=== PATIENT | male | born 1985 | race Caucasian/White ===

== ENCOUNTER → 2020-07-09 15:27 | Outpatient (BNVA) | payer OTHER, SELFPAY | PROVIDERS: PCP Electrodiagnostic Medicine; Visit Provider Nurse Practitioner | DX: Z20.828 Contact with and (suspected) exposure to other viral communicable diseases (principal) | CPT/HCPCS: 87635 ==

== ENCOUNTER 2020-08-31 16:07 | Emergency (ER) | payer SELFPAY ==
--- NOTE | 2020-08-31 16:09 | USR_ITS ---
PROCEDURE INFORMATION: Exam: US Scrotum Exam date and time: 08/31/2020 4:20 PM Age: 34 years old Clinical indication: Scrotum pain; Prior surgery; Surgery date: 6+ months; Surgery type: Testicular; Additional info: Testicular pain/possible torsion TECHNIQUE: Imaging protocol: Real-time ultrasound of the scrotum and contents with color Doppler and image documentation. COMPARISON: US Testicular [id number] 10/29/2017 4:11 PM FINDINGS: Right testicle: Right testis measures 5.7 x 2.3 x 3.1 cm. The testis is normal in echotexture. No focal testicular lesion is demonstrated. Appropriate blood flow documented by Doppler. Left testicle: Left testis measures 5.1 x 2.6 x 3.6 cm. The testis is normal in echotexture. No focal testicular lesion is demonstrated. Appropriate blood flow documented by Doppler. Epididymides: 7 mm right epididymal head cyst. Left epididymis is unremarkable. Scrotum: No hydrocele or varicocele demonstrated. US/US scrotum [id number] IMPRESSION: 1. Sonographically normal testes bilaterally. No evidence of torsion. 2. 7 mm right epididymal head cyst.
--- NOTE | 2020-08-31 16:13 | ED_ITS ---
HPI - Male Genitourinary General: Chief complaint: Urogenital-Male Stated complaint: POSS KIDNEY STONES Time Seen by Provider: 08/31/20 16:09 History of Present Illness: HPI Narrative: 30 for a male complaining of testicular pain he states most of the pain is in his left testicle it began earlier today to begin increasing in discomfort throughout the day. He is not had any hematuria he has had kidney stones in the past. He denies any fever sweats or chills pain radiated up from the left flank but most of it is concentrated in the left testicle now. MD Complaint: testicle pain Onset (ago): hour(s) Duration: constant Location: left testicle Radiation: left flank Severity: severe Quality: sharp and stabbing Relieving factors: none Exacerbating factors: none Associated symptoms: Deny discharge, dysuria, fevers/chills, hematuria, nausea, rash, swelling, urinary incontinence, urinary retention, mass or vomiting Review of Systems Const: Denies: fever(s), chills, body aches, change in appetite, fatigue or malaise ENMT: Denies: throat pain, ear or mastoid pain, nasal discharge or nasal congestion Card: Denies: chest pain, edema, dyspnea on exertion or orthopnea Resp: Denies: dyspnea, productive cough or non-productive cough GI: Denies: nausea or vomiting : Denies: dysuria, urinary incontinence or hematuria Skin/Breast: Denies: rash or pruritus Physical Exam Const: GENERAL APPEARANCE: cooperative ORIENTATION/CONSCIOUSNESS: Yes awake, Yes oriented to person, Yes oriented to place and Yes oriented to time HENMT: COMMON NORMALS: normocephalic, atraumatic and hearing grossly normal bilaterally HEAD & SCALP: normocephalic and atraumatic Neck/C-Spine: COMMON NORMALS: no JVD Resp: COMMON NORMALS: normal respiratory effort, No retractions, No use of accessory muscles and clear to auscultation bilaterally AUSCULTATION: clear to auscultation bilaterally Cardio: COMMON NORMALS: no JVD, regular rate, regular rhythm and No murmurs present (Cardio) RATE: regular rate RHYTHM: regular rhythm GI: COMMON NORMALS: Soft to palpation and No hepatosplenomegaly present AUSCULTATION: Yes normoactive bowel sounds PALPATION: Yes Soft to palpation, No Tenderness to palpation present (GI), No Guarding due to palpation present (GI) and Yes No hepatosplenomegaly present Extremity: COMMON NORMALS: normal to inspection, capillary refill normal, no clubbing, cyanosis or edema, no calf tenderness and no pedal edema Neuro: SENSORIUM/ORIENTATION: Yes oriented to person, Yes oriented to place and Yes oriented to time Skin: COMMON NORMALS: no rashes or lesions noted GENERAL SKIN EXAM: no rashes or lesions noted Course Vital Signs: Vital signs: Vital Signs Temperature 97.8 F 08/31/20 16:16 Pulse Rate 101 H 08/31/20 16:16 Respiratory Rate 16 08/31/20 16:25 Blood Pressure 157/107 08/31/20 16:16 Pulse Oximetry 100 08/31/20 16:16 MDM - Male MDM Narrative: Medical decision making narrative: Discussed with Dr. Rouse will admit for bilateral urolithiasis. Orders written Lab Data: Labs: Lab Results 08/31/20 08/31/20 Range/Units 16:24 16:24 WBC 12.6 H (4.0-10.0) 10^3/ uL RBC 5.33 H (4.1-5.3) 10^6/u L Hgb 15.8 (11.7-16.6) g/dL Hct 45.7 (42.0-52.0) % MCV 85.7 (80-94) fL MCH 29.6 (28.0-34.0) pg MCHC 34.6 (30.0-36.0) g/dL RDW 12.6 (12.1-15.1) % Plt Count 362 (130-400) 10^3/c mm MPV 9.4 (7.4-10.4) fL Neut % (Auto) 73.8 % Lymph % (Auto) 15.7 % [place] % (Auto) 9.1 % Eos % (Auto) 0.6 % Baso % (Auto) 0.5 % Neut # (Auto) 9.28 H (1.8-7.7) 10^3/u L Lymph # (Auto) 2.0 (0.8-4.8) 10^3/u L [place] # (Auto) 1.1 H (0.2-0.9) 10^3/u L Eos # (Auto) 0.1 (0.0-0.8) 10^3/u L Baso # (Auto) 0.1 (0.0-0.1) 10^3/u L Nucleated RBC % (a uto) 0 % Nucleated RBCs # 0.0 /100WBC Sodium 137 (136-145) mmol/L Potassium 3.4 L (3.5-5.1) mmol/L Chloride 98 (98-107) mmol/L Carbon Dioxide 28 (22-29) mmol/L Anion Gap 14.4 (5-19) BUN 15 (6-20) mg/dL Creatinine 1.5 H (0.7-1.2) mg/dL GFR Calculation 53.6 L (90-130) mL/min Glucose 107 (65-115) mg/dL Calculated Osmolal ity 285 (285-295) mOsm/k g Calcium 10.3 (8.5-10.5) mg/dL Total Bilirubin 0.5 (0.15-1.2) mg/dL AST 24 (0-40) U/L ALT 14 (0-41) U/L Alkaline Phosphata se 73 (40-130) IU/L Total Protein 7.3 (6.6-8.7) g/dL Albumin 4.7 (3.5-5.2) g/dL Globulin 2.6 (1.3-4.6) g/dL Discharge Plan Discharge Patient Disposition: Admitted As Inpatient Clinical Impression: Nephrolithiasis Condition: Stable Prescriptions: No Action Pain Relief ([id number]) 1 tab PO QAM PRN (Reason: Pain) RF: 0 Referrals: Maicol Lundberg DO [Primary Care Provider] - Coding Level of Care Code ED [employer] for g Fwd Exam Comprehensive
[2020-08-31 16:16] VITALS: BP 157/107; PULSE 101; RESP 18; TEMP 36.6; O2SAT 100; BMI 24.3
[2020-08-31] MEDS: ondansetron 2 mg/ML SDV 2 mL 4 MG IVP (16:22)
[2020-08-31 16:25] VITALS: RESP 16
[2020-08-31] MEDS: morphine 4 mg/mL SDV 1 mL 6 MG IVP (16:25)
--- NOTE | 2020-08-31 17:04 | CTR_ITS ---
PROCEDURE INFORMATION: Exam: CT Abdomen And Pelvis Without Contrast Exam date and time: 08/31/2020 5:05 PM Age: 34 years old Clinical indication: Abdominal pain; Flank; Prior surgery; Surgery type: Kidney stone; Patient HX: Left testicle pain; Additional info: Flank pain TECHNIQUE: Imaging protocol: Computed tomography of the abdomen and pelvis without contrast. Radiation optimization: All CT scans at this facility use at least one of these dose optimization techniques: automated exposure control; mA and/or kV adjustment per patient size (includes targeted exams where dose is matched to clinical indication); or iterative reconstruction. COMPARISON: No relevant prior studies available. RADIATION DOSE METRICS: Total DLP (mGy-cm): 799.17 FINDINGS: Lungs: Mild bullous disease at the lung bases. No infiltrates. Liver: Unremarkable. No mass. Gallbladder and bile ducts: Unremarkable. No calcified stones. No ductal dilation. Pancreas: Unremarkable. No ductal dilation. Spleen: Unremarkable. No splenomegaly. Adrenal glands: Unremarkable. No mass. Kidneys and ureters: Moderate left hydroureteronephrosis. There is a 7 mm mid left ureteral calculus. Findings are consistent with left obstructive uropathy. Mild right hydroureteronephrosis. There is a 5 mm distal right ureteral calculus. Findings are consistent with right obstructive uropathy. Stomach and bowel: Unremarkable. No obstruction. No mucosal thickening. Appendix: No evidence of appendicitis. Intraperitoneal space: No free air. No significant fluid collection. Vasculature: Mild atherosclerosis. No abdominal aortic aneurysm. Lymph nodes: No enlarged lymph nodes. Urinary bladder: Unremarkable as visualized. Reproductive: Unremarkable as visualized. Bones/joints: Unremarkable. No acute fracture. Soft tissues: Unremarkable. CT/CT kidney stone [id number] IMPRESSION: 1. Moderate left hydroureteronephrosis. There is a 7 mm mid left ureteral calculus. Findings are consistent with left obstructive uropathy. 2. Mild right hydroureteronephrosis. There is a 5 mm distal right ureteral calculus. Findings are consistent with right obstructive uropathy. Radiation Dose CTDIVOL = (mGy): DLP = 799.17 (mGy-cm)
[2020-08-31 17:14] LABS: Basophils # 0.1 10^3/uL (0.0-0.1); Basophils % 0.5 %; Eosinophils # 0.1 10^3/uL (0.0-0.8); Eosinophils % 0.6 %; Hematocrit 45.7 % (42.0-52.0); Hemoglobin 15.8 g/dL (11.7-16.6); Lymphocytes % 15.7 %; Mean Corpuscular HGB Conc 34.6 g/dL (30.0-36.0); Mean Corpuscular Hemoglobin 29.6 pg (28.0-34.0); Mean Corpuscular Volume 85.7 fL (80-94); Mean Platelet Volume 9.4 fL (7.4-10.4); Monocytes # 1.1 10^3/uL (0.2-0.9); Monocytes % 9.1 %; Neutrophils # 9.28 10^3/uL (1.8-7.7); Neutrophils % 73.8 %; Nucleated Red Blood Cells % 0 %; Platelet Count 362 10^3/cmm (130-400); Red Blood Count 5.33 10^6/uL (4.1-5.3); Red Cell Distribution Width 12.6 % (12.1-15.1); White Blood Count 12.6 10^3/uL (4.0-10.0)
[2020-08-31] MEDS: morphine 4 mg/mL SDV 1 mL IVP (17:15)
--- NOTE | 2020-08-31 17:43 | PC.NURSE ---
Bladder scan: 200 mL
[2020-08-31 17:51] LABS: Alanine Aminotransferase 14 U/L (0-41); Albumin Level 4.7 g/dL (3.5-5.2); Alkaline Phosphatase 73 IU/L (40-130); Anion Gap 14.4 (5-19); Aspartate Amino Transferase 24 U/L (0-40); Blood Urea Nitrogen 15 mg/dL (6-20); Calcium 10.3 mg/dL (8.5-10.5); Carbon Dioxide 28 mmol/L (22-29); Chloride 98 mmol/L (98-107); Globulin 2.6 g/dL (1.3-4.6); Glomerular Filtration Rate 53.6 mL/min (90-130); Glucose 107 mg/dL (65-115); Osmolality Calculated 285 mOsm/kg (285-295); Potassium 3.4 mmol/L (3.5-5.1); Sodium 137 mmol/L (136-145); Total Bilirubin 0.5 mg/dL (0.15-1.2); Total Protein 7.3 g/dL (6.6-8.7)
[2020-08-31 17:56] LABS: Creatinine Clr Calc Pharmacy 75.3287
[2020-08-31 18:28] LABS: Add Urine Microscopic? YES; Bilirubin Urine Neg (Negative); Blood Urine Neg (Negative); Glucose Urine UA Norm (Normal); Ketones Urine Negative (Negative); Leukocyte Esterase Urine Negative (Negative); Nitrate Urine Negative (Negative); Protein Urine Neg (Negative); Sulfosalicylic Acid Urine Positive (Negative); Urine Appearance Cloudy (CLEAR); Urine Color Yellow (Yellow); Urobilinogen Urine Norm (Negative); pH Urine 8 (5-7)
[2020-08-31 18:40] LABS: Add Urine Culture? Yes; Bacteria Urine 2+ /hpf; RBC Urine TOO NUMEROUS TO CNT /hpf (0-2); Squamous Epithelial Cell Urine 0-4 /hpf (0-5); WBC Urine 0-4 /hpf (0-5)
[2020-08-31 19:16] VITALS: BP 175/107; PULSE 110; RESP 22; O2SAT 97
--- NOTE | 2020-08-31 19:30 | PC.NURSE ---
during pt rounding, pt expressing concers regarding inpatient admission. After pt informed of reason for admission, pt requesting time to speak with family member present in room to discuss options for admission
--- NOTE | 2020-08-31 20:02 | PC.NURSE ---
pt not in room, no sign that pt removed his IV. Was told in report that pt admits to street drug use. Staff attempted to locate pt in lobbies and parking lots, was told by registration clerks that pt was found in the lobby looking for his girlfriend and was told he could not stay in lobby. PRATIBHA, pharmacy assistant, [employer] notified of pt elopement
--- NOTE | 2020-08-31 20:16 | PC.SOCIAL ---
Patient seen in the ED for initial assessment. He was assigned a room but left the ED AMA before going to the floor. He lived with his grandmother and other family. He is not working currently or had no insurance. A financial assistance application was provided to him.
== END 2020-08-31 20:00 | disposition admitted as inpatient to this hospital (09) ==
PROVIDERS: Emergency Provider Family Medicine; PCP Electrodiagnostic Medicine
DX: N20.0 Calculus of kidney (principal)
CPT/HCPCS: 12345; 51798; 74176; 76870; 80053; 81001; 85025; 87086; 96374; 96375; 96376; 99283; J2270; J2405

== ENCOUNTER 2020-09-07 15:37 | Outpatient (CLI) | payer OTHER, SELFPAY ==
--- NOTE | 2020-09-07 16:00 | XRR_ITS ---
PROCEDURE INFORMATION: Exam: XR Abdomen, 1 View Exam date and time: 09/07/2020 3:45 PM Age: 34 years old Clinical indication: Condition or disease; Kidney or ureter condition; Calculus (stone) in kidney; Additional info: Nephrolithiasis TECHNIQUE: Imaging protocol: XR of the abdomen. Views: Frontal supine view of the abdomen. 1 View. COMPARISON: CT kidney stone [id number] 08/31/2020 5:18 PM FINDINGS: Gastrointestinal tract: Normal. No bowel dilation.There is mildly excessive colonic stool content. Organs: No calculi are identified in the projection of the kidneys, right ureter or bladder. Vasculature: There is a 6 mm calculus in the left pelvis compatible with a phlebolith visualized on the recent CT scan. Bones/joints: There is a 12 mm calculus along the course of the left ureter projected just superior to the left transverse process of L5 on the 2nd view. This is unchanged in position compared to the prior CT scan. Bones/joints: Unremarkable. XR/XR KUB [id number] IMPRESSION: There is a 12 mm calculus along the course of the mid left ureter unchanged in position compared to the prior CT scan. A 6 mm phlebolith in the left pelvis is also noted.
== END 2020-09-07 15:38 | disposition home or self-care (01) ==
LOC: RAD 15:42
PROVIDERS: PCP Electrodiagnostic Medicine; Visit Provider Urology
DX: N20.0 Calculus of kidney (principal); Z20.828 Contact with and (suspected) exposure to other viral communicable diseases
CPT/HCPCS: 74018; 80048; 81003; 87635

== ENCOUNTER 2020-09-27 10:01 | Outpatient (CLI) | payer SELFPAY ==
--- NOTE | 2020-09-27 10:00 | XR_ITS ---
WS: [id number] KUB, 09/27/2020 Clinical Data: URETERAL OBSTRUCTION Comparison: KUB, 09/07/2020. Findings: There is a calcification overlapping the inferior aspect the left L5 transverse process which may rep resent the left mid ureteral calculus. The distal right ureteral calculus is not seen. There is fecal material and gas obscuring detail over the bladder. There is fecal material obscuring detail over th e right kidney and bowel gas obscuring detail over the left kidney. XR/XR KUB [id number] Impression: 1. Probably no change in left mid ureteral calculus. 2. Distal right ureteral calculus not seen but may be obscured by fecal materia l and bowel gas.
== END 2020-09-27 10:02 | disposition home or self-care (01) ==
PROVIDERS: Visit Provider Urology
DX: N13.5 Crossing vessel and stricture of ureter without hydronephrosis (principal)
CPT/HCPCS: 74018

== ENCOUNTER 2020-09-27 13:00 | Day surgery (SDC) | payer SELFPAY ==
[2020-09-27] VITALS (10 sets, daily range): BP systolic 124–163; BP diastolic 77–107; PULSE 70–89; RESP 13–18; TEMP 36.3–36.7; O2SAT 97–100; BMI 23.7
[2020-09-27] MEDS: sodium chloride 0.9% 1,000 ML 30 ML IV (13:28)
[2020-09-27] MEDS: fentaNYL 50 mcg/mL INJ 2mL IVP (13:40)
--- NOTE | 2020-09-27 13:48 | W.PM.OPSUD ---
Surgery/Procedure H&P Update DATE OF PROCEDURE: September 27, 2020 DATE H&P PERFORMED: 09/27/20 H&P UPDATE INFORMATION: I have reviewed H&P completed within last 30 days, I have examined patient prior to procedure, No changes to prior documentation and [place] [facility] [place] PREOP DIAGNOSIS: Ureteral calculi, bilateral PLANNED PROCEDURE: Operation Date: 09/27/20 14:45 Proposed Procedures p Cystoscopy 16109 [id number] 23274 N20.0(Not Applicable) - Herbie Rouse MD s Retrograde Pyelogram(Bilateral) - MD melissa Olmos Ureteroscopy(Not Applicable) - MD melissa Olmos ESWL(Not Applicable) - MD melissa Olmos left Ureteral Stent Placement(Left) - Herbie Rouse MD
--- NOTE | 2020-09-27 14:35 | ANES.PREANE2 ---
Pre-Anesthetic Assessment Pre-Anesthetic Assessment: Height/Weight: Height 1.8 m Weight 77.111 kg Temp Pulse Resp BP Pulse Ox 98.1 F 89 18 163/107 98 09/27/20 13:23 09/27/20 13:23 09/27/20 13:23 09/27/20 13:23 09/27/20 13:23 Preop Diagnosis: Ureteral calculi, bilateral Proposed Procedure: Operation Date: 09/27/20 14:45 Proposed Procedures p Cystoscopy 72174 [id number] 69438 N20.0(Not Applicable) - Herbie Rouse MD s Retrograde Pyelogram(Bilateral) - MD melissa Olmos Ureteroscopy(Not Applicable) - MD melissa Olmos ESWL(Not Applicable) - Herbie Rouse MD s left Ureteral Stent Placement(Left) - Herbie Rouse MD Familial anesthetic complications: none Was Beta Jay taken within 24 hours: N/A Last intake: Intake Last Liquid Date 09/26/20 Last Liquid Time 23:00 Last Solid Date 09/26/20 Last Solid Time 23:00 Social: Social History: Tobacco and No alcohol Exam: Pre-Anes Outpt Exam: alert, oriented x 3, clear to auscultation bilaterally and regular rate & rhythm Airway: Cervical ROM: WNL MP: 3 Dentition: Chipped (multiple chipped, top and bottom, front and back) Additional comments: full troy CV/HEM: CV/HEM: HTN GI: GI: GERD Anesthetic Plan: ASA status: 2 Anesthesia: General Risk of > 500 ml blood loss (7ml/kg in children): No Meds/Allergies Current Medications: Current Medications Generic Name Dose Route Start Last Admin Trade Name Freq PRN Reason Stop Dose Admin Sodium Chloride 1,000 mls @ 30 ml s/hr 09/27/20 13:15 09/27/20 13:28 Sodium Chloride 0.9% IV 09/28/20 13:14 30 mls/hr .Q24H DEONTE Administration PFSH Anesthesia PFSH: Medical History (Updated 09/27/20 @ 11:20 by Herbie Rouse MD) Anxiety and depression Bipolar 1 disorder Chronic migraine Fibromyalgia GERD (gastroesophageal reflux disease) History of torsion of testis HTN (hypertension) Manic depression Urolithiasis Surgical History History of lithotripsy Family History Father CAD (coronary artery disease) Grandfather CAD (coronary artery disease) Social History Smoking and tobacco status: current every day smoker Alcohol intake: current Alcohol intake frequency: holidays/special occasions only Adopted: No Caregiver/support person: No Lives independently: No Marital status: Current occupational status: unemployed Data Anesthesia Cardiac Studies: No Data to Display
--- NOTE | 2020-09-27 14:36 | P.OP_ITS ---
Operative Report Date of procedure: September 27, 2020 Pre-op Diagnosis: Ureteral calculi, bilateral Post-op diagnosis: same Procedure Done: 1. Cystoscopy, BILATERAL retrograde ureteropyelogram, 2. Left ureteral stent 3. LEFT: Extracorporeal shockwave lithotripsy left ureteral stone Implants: Left ureteral stent Surgeon: Padma Anesthesia: General Urine output: Not measured Complications: None Condition: stable Disposition: PACU Brief History: Mal is a very pleasant 34-year-old white male with a history of complicated stone disease originally diagnosed with bilateral ureteral stones with obstruction but not oliguria. He was less than reliable on his follow-up initially but ultimately he passed the right ureteral stones. He had a large cluster or large stone in the left mid ureter and was scheduled for endoscopic versus ESWL treatment for that stone but then was tested positive on routine preoperative screening for Covid. He has quarantine the appropriate time and is now being admitted for treatment for the left ureteral stone. The cluster of stones was a large but it was somewhat hard to see on preop KUB today due to overlying the pelvic bony structures. Plan was to perform a cystoscopy, retrograde, stent placement and then perform ESWL. Ureteroscopy was also mentioned as an option if stones could not be readily identified. Procedure: After routine preoperative evaluation examination and obtaining of informed consent he was taken to the operating suite on 09/27/2020 where general anesthesia was administered without difficulty after appropriate timeout was performed, SCDs confirmed to be functioning, preoperative antibiotics administered, beta-terry protocol confirmed. Prepped and draped in the usual sterile fashion in dorsal lithotomy position paying careful attention to avoiding pressure points. 21 [place] cystoscope with 30 degree lens was introduced to the urethral meatus and advanced into the bladder under videoscopy. Bladder was systematically examined. No stones were seen. BILATERAL RETROGRADE URETEROPYELOGRAM: 1. Contrast was first injected up the right ureter showing no evidence of residual stones within the right ureter. The course and caliber of the right ureter was normal. 2. Contrast was then injected up the left ureter confirming the stone in the mid left ureter near T5. The ureter proximal to that point was dilated. There were no stones seen in the distal ureter. Flexible tip guidewire was then advanced up the left ureter bypassing the stone curling in the upper pole calyx area. A 7 [place] by 28 cm double-pigtail stent was advanced over the guidewire into appropriate position confirmed via fluoroscopy and cystoscopy. He was then positioned in supine position paying careful attention to avoiding pressure points. With a shock head positioned anteriorly the stone was brought into the focal point and easily identified. Shockwave therapy was initiated at an intensity of 1 and advanced an intensity of 4. Rate was initiated at 70 and later advanced to 90 after good change was noted. At the completion of the procedure the stone could no longer be easily identified. He tolerated the procedure well without complications. Awakened in the operating room and returned to recovery in stable condition. PLANS: 1. Anticipate discharge from outpatient surgery today 2. Follow-up in 7 to 10 days with a KUB first for possible cystoscopy and stent removal.
[2020-09-27] MEDS: levofloxacin-dextrose 5 % 500 MG/100 ML PREMIX 100 MG IV (14:42)
[2020-09-27] MEDS: iohexol 300 mg/mL 50 mL Btl (OR ONLY) XX (14:55)
--- NOTE | 2020-09-27 16:39 | ANE.PACU2 ---
Inpatient post-anesthesia follow up: Airway intact: Yes Vital signs: Temperature 97.4 F Pulse Rate 89 Respiratory Rate 18 Blood Pressure 150/102 Pulse Oximetry 99 Oxygen Delivery Me thod Room Air Oxygen Flow Rate 8 Fraction of Inspir ed Oxygen Hydration adequate: Yes Nausea and vomiting: No Pain level: 3 Mental status: Baseline
== END 2020-09-27 17:15 | disposition home or self-care (01) ==
PROVIDERS: Visit Provider Urology
PROC: 0TJB8ZZ Inspection of Bladder, Via Natural or Artificial Opening Endoscopic (ICD-10-PCS; CPT 52000; principal; 2020-09-27 14:25)
PROC: (CPT 74420; 2020-09-27 14:25)
PROC: (CPT 50590; 2020-09-27 14:25)
PROC: (CPT 50605; 2020-09-27 14:25)
DX: N20.1 Calculus of ureter (principal); I10 Essential (primary) hypertension; K21.9 Gastro-esophageal reflux disease without esophagitis; M79.7 Fibromyalgia; F41.9 Anxiety disorder, unspecified; F32.9 Major depressive disorder, single episode, unspecified; F17.210 Nicotine dependence, cigarettes, uncomplicated
CPT/HCPCS: 50590; 52332; 12345; 96374; C2625; J1956; J2250; J2704; J3010; J3490; J7030

== ENCOUNTER 2020-10-13 09:05 | Outpatient (CLI) | payer SELFPAY ==
--- NOTE | 2020-10-13 09:16 | XR_ITS ---
WS: [id number] Exam: XR KUB [id number] Date/Time of Exam: 10/13/2020 9:19 AM Reason For Exam: URETERAL STONE Comparison with the last exam 09/27/2020. A left ureteral catheters in place. A be in good position. No obvious abnormal abdominal calcificatio ns are noted. Visualized organ margins are intact. Moderate amount retained stool throughout the larg e bowel. Bony structures appear normal. XR/XR KUB [id number] IMPRESSION: 1. No abnormal abdominal or pelvic calcifications seen. 2. Left-sided ureteral stent appearing to be in good position. 3. Constipation.
== END 2020-10-13 09:06 | disposition home or self-care (01) ==
LOC: RAD 09:07
PROVIDERS: Visit Provider Urology
DX: N20.1 Calculus of ureter (principal); K59.00 Constipation, unspecified; Z96.0 Presence of urogenital implants
CPT/HCPCS: 74018; 81003

== ENCOUNTER 2021-04-13 13:07 | Outpatient (CLI) | payer SELFPAY ==
--- NOTE | 2021-04-13 12:45 | XR_ITS ---
WS: [id number] KUB, AP view, 04/13/2021 Clinical Data: UROLITHIASIS Comparison: KUB, 10/13/2020. Findings: No abnormal intraabdominal masses or calcifications are seen. There is no dilatated small bowel or ev idence of obstruction. The left ureteral stent has been removed. There is a large amount of fecal material throughout colon. XR/XR KUB [id number] Impression: Large amount of fecal material in the colon.
== END 2021-04-13 13:08 | disposition home or self-care (01) ==
LOC: RAD 13:09
PROVIDERS: Visit Provider Urology
DX: N20.9 Urinary calculus, unspecified (principal); N20.2 Calculus of kidney with calculus of ureter
CPT/HCPCS: 74018; 81003

== ENCOUNTER 2021-04-16 04:25 | Emergency (ER) | payer SELFPAY ==
[2021-04-16 04:35] VITALS: BP 189/118; PULSE 75; RESP 16; TEMP 36.6; O2SAT 97; BMI 27.1
--- NOTE | 2021-04-16 04:35 | XRR_ITS ---
PROCEDURE INFORMATION: Exam: XR Chest Exam date and time: 04/16/2021 4:35 AM Age: 35 years old Clinical indication: On breathing and sternal or substernal pain and left-sided; Additional info: Cp TECHNIQUE: Imaging protocol: XR of the chest. Views: 1 view. COMPARISON: CR XR KUB [id number] 04/13/2021 1:25 PM FINDINGS: Lungs: Unremarkable. No consolidation. Pleural spaces: Unremarkable. No pleural effusion. No pneumothorax. Heart/Mediastinum: Unremarkable. No cardiomegaly. Bones/joints: Unremarkable. XR/XR chest 1V portable [id number] IMPRESSION: No acute cardiopulmonary abnormality.
[2021-04-16 04:39] VITALS: BP 155/102; PULSE 77; RESP 20; O2SAT 97
[2021-04-16 05:00] LABS: Basophils # 0.1 10^3/uL (0.0-0.1); Basophils % 0.5 %; Eosinophils # 0.3 10^3/uL (0.0-0.8); Eosinophils % 2.8 %; Hematocrit 48.1 % (42.0-52.0); Hemoglobin 15.9 g/dL (11.7-16.6); Lymphocytes # 2.6 10^3/uL (0.8-4.8); Lymphocytes % 27.4 %; Mean Corpuscular HGB Conc 33.1 g/dL (30.0-36.0); Mean Corpuscular Volume 90.8 fL (80-94); Mean Platelet Volume 9.5 fL (7.4-10.4); Monocytes # 0.7 10^3/uL (0.2-0.9); Monocytes % 7.6 %; Neutrophils # 5.88 10^3/uL (1.8-7.7); Neutrophils % 61.5 %; Nucleated Red Blood Cells % 0 %; Platelet Count 260 10^3/cmm (130-400); Red Cell Distribution Width 13.2 % (12.1-15.1); White Blood Count 9.6 10^3/uL (4.0-10.0)
--- NOTE | 2021-04-16 05:08 | ED_ITS ---
HPI - Chest Pain General: Chief Complaint: Chest Pain Stated Complaint: Shortness Breath\Shoulders Hurt Time Seen by Provider: 04/16/21 04:35 History of Present Illness: HPI narrative: 35-year-old male who awoke early this morning, around an hour prior to arrival with pain to his chest and upper back with both shoulders hurting in his shoulder blades. He denies any trauma. He states it hurts to breathe. He is short of breath with the pain. He notes that his belly hurt yesterday, which he related to constipation. MD complaint: chest pain Pertinent past history: other Onset (ago): hour(s) Prior episodes: No Onset: during rest and awoke with symptoms Pain location: parasternal Pain radiation: left scapula and right scapula Severity: moderate Quality: aching and heaviness Relieving factors: nothing Associated symptoms: Reports abdominal pain, dyspnea, nausea and palpitations; Deny diaphoresis, fever(s) or syncope Review of Systems Const: Denies: fever(s) or diaphoresis Card: Reports: palpitations; Denies: syncope Resp: Reports: dyspnea GI: Reports: abdominal pain and nausea PFS ED PFSH: Medical History (Updated 04/16/21 @ 05:54 by Karl Jacobsen DO) Anxiety and depression Bipolar 1 disorder Chronic migraine Fibromyalgia GERD (gastroesophageal reflux disease) History of torsion of testis HTN (hypertension) Left flank pain Manic depression Urolithiasis Surgical History History of lithotripsy Family History Father CAD (coronary artery disease) Grandfather CAD (coronary artery disease) Social History Smoking and tobacco status: current every day smoker Alcohol intake: current Alcohol intake frequency: holidays/special occasions only Adopted: No Caregiver/support person: No Lives independently: No Marital status: Current occupational status: unemployed Physical Exam Const: GENERAL APPEARANCE: well developed ORIENTATION/CONSCIOUSNESS: Yes oriented to person, Yes oriented to place and Yes oriented to time HENMT: COMMON NORMALS: normocephalic, external ears normal and Normal external nose present HEAD & SCALP: normocephalic FACE & SINUS: normal facial exam NOSE: Normal external nose present and No nasal discharge present EXTERNAL EAR: Yes external ears normal Eye: COMMON NORMALS: Equal, round and reactive pupils present, EOMs intact bilaterally and conjunctivae normal EYELID: eyelids normal CONJUNCTIVA: Yes conjunctivae normal PUPIL: Yes Equal, round and reactive pupils present Neck/C-Spine: GENERAL: No tracheal deviation Chest: COMMONS NORMALS: normal inspection of the chest CHEST: No tenderness Resp: COMMON NORMALS: clear to auscultation bilaterally EFFORT & INSPECTION: No tachypneic, No respiratory distress, No retractions, No uses accessory muscles and No tracheal deviation AUSCULTATION: clear to auscultation bilaterally, no rhonchi, no wheezes and lung sounds not diminished Cardio: COMMON NORMALS: regular rate and regular rhythm RATE: regular rate RHYTHM: regular rhythm HEART SOUNDS: no murmurs PERIPHERAL PULSES: radia l pulses present GI: INSPECTION: No abdominal distension AUSCULTATION: No Hyperactive bowel sounds present and No Hypoactive bowel sounds present PALPATION: No Guarding due to palpation present (GI) and No Rigid due to palpation PERCUSSION: no dullness to percussion and no tympanic to percussion Neuro: SENSORIUM/ORIENTATION: Yes oriented to person, Yes oriented to place and Yes oriented to time Psych: COMMON NORMALS: mental status grossly normal Skin: COMMON NORMALS: no rashes or lesions noted GENERAL SKIN EXAM: no rashes or lesions noted Course Vital Signs: Vital signs: Vital Signs Temperature 97.9 F 04/16/21 04:35 Pulse Rate 65 04/16/21 05:41 Respiratory Rate 15 04/16/21 05:41 Blood Pressure 153/98 04/16/21 05:41 Pulse Oximetry 96 04/16/21 05:41 MDM - Chest Pain MDM Narrative: Medical decision making narrative: 5-year-old male with chest discomfort and shoulder blade discomfort. His chest x-ray is normal. His laboratory appears normal essentially. His troponin is negative. His EKG shows a normal sinus rhythm with a rate of 65 normal axis and no acute ST changes. He will be allowed discharge. Lab Data: Labs: Lab Results 04/16/21 04/16/21 04/16/21 Range/Units 04:50 04:50 04:50 WBC 9.6 (4.0-10.0) 10^3/ uL RBC 5.30 (4.1-5.3) 10^6/u L Hgb 15.9 (11.7-16.6) g/dL Hct 48.1 (42.0-52.0) % MCV 90.8 (80-94) fL MCH 30.0 (28.0-34.0) pg MCHC 33.1 (30.0-36.0) g/dL RDW 13.2 (12.1-15.1) % Plt Count 260 (130-400) 10^3/c mm MPV 9.5 (7.4-10.4) fL Neut % (Auto) 61.5 % Lymph % (Auto) 27.4 % [place] % (Auto) 7.6 % Eos % (Auto) 2.8 % Baso % (Auto) 0.5 % Neut # (Auto) 5.88 (1.8-7.7) 10^3/u L Lymph # (Auto) 2.6 (0.8-4.8) 10^3/u L [place] # (Auto) 0.7 (0.2-0.9) 10^3/u L Eos # (Auto) 0.3 (0.0-0.8) 10^3/u L Baso # (Auto) 0.1 (0.0-0.1) 10^3/u L Nucleated RBC % (a uto) 0 % Nucleated RBCs # 0.0 /100WBC D-Dimer (0-0.59) ug/mIFE U Sodium 141 (136-145) mmol/L Potassium 4.1 (3.5-5.1) mmol/L Chloride 103 (98-107) mmol/L Carbon Dioxide 27 (22-29) mmol/L Anion Gap 15.1 (5-19) BUN 9 (6-20) mg/dL Creatinine 1.0 (0.7-1.2) mg/dL GFR Calculation 85.0 L (90-130) mL/min Glucose 82 (65-115) mg/dL Calculated Osmolal ity 290 (285-295) mOsm/k g Calcium 9.8 (8.5-10.5) mg/dL Total Bilirubin 0.6 (0.15-1.2) mg/dL AST 11 (0-40) U/L ALT < 5 (0-41) U/L Alkaline Phosphata se 76 (40-130) IU/L Creatine Kinase 86 (39-308) U/L Troponin T Baselin e 6 (0-15) ng/L NT-Pro-B Natriuret Pep 148 H (0-125) pg/mL Total Protein 6.6 (6.6-8.7) g/dL Albumin 3.9 (3.5-5.2) g/dL Globulin 2.7 (1.3-4.6) g/dL 04/16/21 Range/Units 05:20 WBC (4.0-10.0) 10^3/ uL RBC (4.1-5.3) 10^6/u L Hgb (11.7-16.6) g/dL Hct (42.0-52.0) % MCV (80-94) fL MCH (28.0-34.0) pg MCHC (30.0-36.0) g/dL RDW (12.1-15.1) % Plt Count (130-400) 10^3/c mm MPV (7.4-10.4) fL Neut % (Auto) % Lymph % (Auto) % [place] % (Auto) % Eos % (Auto) % Baso % (Auto) % Neut # (Auto) (1.8-7.7) 10^3/u L Lymph # (Auto) (0.8-4.8) 10^3/u L [place] # (Auto) (0.2-0.9) 10^3/u L Eos # (Auto) (0.0-0.8) 10^3/u L Baso # (Auto) (0.0-0.1) 10^3/u L Nucleated RBC % (a uto) % Nucleated RBCs # /100WBC D-Dimer 0.52 (0-0.59) ug/mIFE U Sodium (136-145) mmol/L Potassium (3.5-5.1) mmol/L Chloride (98-107) mmol/L Carbon Dioxide (22-29) mmol/L Anion Gap (5-19) BUN (6-20) mg/dL Creatinine (0.7-1.2) mg/dL GFR Calculation (90-130) mL/min Glucose (65-115) mg/dL Calculated Osmolal ity (285-295) mOsm/k g Calcium (8.5-10.5) mg/dL Total Bilirubin (0.15-1.2) mg/dL AST (0-40) U/L ALT (0-41) U/L Alkaline Phosphata se (40-130) IU/L Creatine Kinase (39-308) U/L Troponin T Baselin e (0-15) ng/L NT-Pro-B Natriuret Pep (0-125) pg/mL Total Protein (6.6-8.7) g/dL Albumin (3.5-5.2) g/dL Globulin (1.3-4.6) g/dL Discharge Plan Discharge Patient Disposition: Home Clinical Impression: Atypical chest pain Condition: Stable Prescriptions: New hydrocodone-acetaminophen 5-325 mg tablet 1 tab PO Q8H PRN (Reason: pain) Qty: 7 RF: 0 Medrol (Genaro) 4 mg tablets,dose pack See Rx Instructions .ROUTE .COMPLEX Qty: 21 RF: 0 No Action multivitamin with minerals [DAILY VITAMIN FORMULA-MINERALS] Tablet 1 tab PO DAILY RF: 0 mecobalamin (vitamin B12) 1,000 mcg tablet,chewable 1,000 mcg PO DAILY RF: 0 cetirizine [24Hour Allergy] 10 mg tablet 10 mg PO DAILY PRNRF: 0 diphenhydramine HCl [Benadryl] 25 mg capsule 25 mg PO TID PRNRF: 0 famotidine 20 mg tablet 20 mg PO DAILY PRN (Reason: reflux) RF: 0 naproxen sodium [Aleve] 220 mg Capsule 220 mg PO BID PRN (Reason: Pain) RF: 0 Discharge Orders: Discharge ED (Routine); Ordered 04/16/21 Ordered By: Karl Jacobsen Patient Instructions: Chest Pain (ED), Opioid Safety Activity Restrictions/Additional Instructions: Return for fever greater than 100, worsening shortness of breath, worsening pain despite treatment, other concerning symptoms. 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
[2021-04-16] MEDS: ondansetron 2 mg/ML SDV 2 mL 4 MG IVP (05:13)
[2021-04-16 05:15] VITALS: RESP 16; O2SAT 97
[2021-04-16] MEDS: morphine 4 mg/mL SDV 1 mL IVP (05:15)
[2021-04-16] MEDS: ketorolac 30 mg/mL INJ 15 MG IVP (05:17)
[2021-04-16 05:26] LABS: Troponin(5th) Baseline 6 ng/L (0-15)
[2021-04-16 05:31] LABS: Alanine Aminotransferase < 5 U/L (0-41); Albumin Level 3.9 g/dL (3.5-5.2); Alkaline Phosphatase 76 IU/L (40-130); Anion Gap 15.1 (5-19); Aspartate Amino Transferase 11 U/L (0-40); Blood Urea Nitrogen 9 mg/dL (6-20); Calcium 9.8 mg/dL (8.5-10.5); Carbon Dioxide 27 mmol/L (22-29); Chloride 103 mmol/L (98-107); Creatine Phosphokinase 86 U/L (39-308); Creatinine Clr Calc Pharmacy 120.8188; Globulin 2.7 g/dL (1.3-4.6); Glucose 82 mg/dL (65-115); NT Pro B Type Natriuretic Pept 148 pg/mL (0-125); Osmolality Calculated 290 mOsm/kg (285-295); Potassium 4.1 mmol/L (3.5-5.1); Sodium 141 mmol/L (136-145); Total Bilirubin 0.6 mg/dL (0.15-1.2); Total Protein 6.6 g/dL (6.6-8.7)
[2021-04-16 05:41] VITALS: BP 153/98; PULSE 65; RESP 15; O2SAT 96
[2021-04-16 05:49] LABS: D Dimer 0.52 ug/mIFEU (0-0.59)
[2021-04-16 06:04] VITALS: BP 153/98; PULSE 79; RESP 16; TEMP 36.6; O2SAT 96
== END 2021-04-16 06:06 | disposition home or self-care (01) ==
PROVIDERS: Emergency Provider Emergency Medicine
DX: R07.89 Other chest pain (principal); I10 Essential (primary) hypertension; F17.210 Nicotine dependence, cigarettes, uncomplicated
CPT/HCPCS: 71045; 80053; 82550; 83880; 84484; 85025; 85378; 96374; 96375; 99284; J1885; J2270; J2405

== ENCOUNTER 2021-05-04 13:13 | Outpatient (CLI) | payer SELFPAY ==
--- NOTE | 2021-05-04 13:18 | CT_ITS ---
WS: [id number] CT ABDOMEN PELVIS TECHNIQUE: Noncontrast CT of the abdomen and pelvis with coronal and sagittal reformatted images. CLINICAL INFORMATION: UROLITHIASIS COMPARISON: CT August 31, 2020 DLP: 1042.[address] scans at [facility] use at least one of these dose optimization techniques: automat ed exposure control; mA and/or kV adjustment per patient size (includes targeted exams where dose is matched to clinical indication); or iterative reconstruction. FINDINGS: No hydronephrosis in either kidney. Previously described obstructing ureteral calculi have resolved. No obstructing renal or ureteral calculi bilaterally. Adrenal glands are normal. Normal noncontrast l iver. Markedly distended stomach with food products and air-fluid level. Normal GE junction. Emphysem atous changes in the lung bases. Noncontrast spleen is normal. Noncontrast pancreas is normal. A few tiny nonobstructing calyceal tip calculi. Suggestion of trace medullary nephrocalcinosis. Gallb ladder is contracted. Normal caliber abdominal aorta. Aortic calcification. Sigmoid diverticulosis. N o evidence of acute diverticulitis. Normal appendix in right lower quadrant. Mild annular bulging L4- L5 and L5-S1. CT/CT kidney stone [id number] IMPRESSION: 1. No hydronephrosis in either kidney. 2. Previously described obstructing ureteral calculi have resolved. No obstruc ting renal or ureteral calculi today. 3. A few tiny nonobstructing calyceal tip calculi. 4. Tiny incidental fat-containing umbilical hernia. 5. No abdominal lymphadenopathy. 6. No other significant findings.
== END 2021-05-04 13:14 | disposition home or self-care (01) ==
LOC: RAD 13:16
PROVIDERS: Visit Provider Urology
DX: N20.2 Calculus of kidney with calculus of ureter (principal); K42.9 Umbilical hernia without obstruction or gangrene
CPT/HCPCS: 74176; 81003

== ENCOUNTER 2021-11-01 12:52 | Emergency (ER) | payer SELFPAY ==
[2021-11-01 13:02] VITALS: BP 155/109; PULSE 112; RESP 18; TEMP 36.6; O2SAT 98; BMI 27.8
--- NOTE | 2021-11-01 13:16 | XR_ITS ---
WS: [id number] Exam: XR lumbar spine 2-3V* [id number] Date/Time of Exam: 11/01/2021 1:30 PM Reason For Exam: fall, low back pain No fracture or dislocation. Disc spaces are preserved. Spinous and transverse processes are intact. R emaining posterior elements appear normal. XR/XR lumbar spine 2-3V* [id number] IMPRESSION: 1. No acute fracture or malalignment.
--- NOTE | 2021-11-01 13:16 | W.ED.NECK ---
HPI - Neck Pain/Injury General: Chief Complaint: Neck Pain/Injury Stated Complaint: fall, back pain, neck pain, head pain Time Seen by Provider: 11/01/21 13:10 History of Present Illness: HPI Narrative: Patient complains about low back pain. He said he rolled out of bed this morning and first he had neck pain but is notHurting more and that his low back hurts. He said he has had problems with low back problems- before denies any other injuries MD complaint: other (Back pain) Onset (ago): hour(s) Place: home Severity: mild Associated symptoms: Denies headache(s) or nausea Review of Systems Const: Denies: fever(s), chills or body aches Eyes: Denies: change in vision or blurry vision ENMT: Denies: throat pain or nasal congestion Card: Denies: chest pain or dyspnea on exertion Resp: Denies: dyspnea, productive cough or non-productive cough GI: Denies: abdominal pain, nausea or vomiting : Denies: difficulty urinating Musc: Reports: back pain; Denies: extremity pain Skin/Breast: Denies: rash Neuro: Denies: headache(s) Psych: Denies: anxiety or depression Ricki/Lymph: Denies: easy bruising PFSH ED PFSH: Medical History Anxiety and depression Bipolar 1 disorder Chronic migraine Fibromyalgia GERD (gastroesophageal reflux disease) History of torsion of testis HTN (hypertension) Left flank pain Manic depression Urolithiasis Surgical History History of lithotripsy Family History Father CAD (coronary artery disease) Grandfather CAD (coronary artery disease) Social History Smoking and tobacco status: current every day smoker Alcohol intake: current Alcohol intake frequency: holidays/special occasions only Adopted: No Caregiver/support person: No Lives independently: No Marital status: Current occupational status: unemployed Physical Exam Const: COMMON NORMALS: no acute distress, average body habitus and patient oriented x3 HENMT: COMMON NORMALS: normocephalic HEAD & SCALP: normal to inspection and normocephalic FACE & SINUS: normal facial exam Eye: COMMON NORMALS: conjunctivae normal GENERAL EYE: appearance normal, both eyes and all related structures CONJUNCTIVA: Yes conjunctivae normal Neck/C-Spine: COMMON NORMALS: full ROM and no JVD CERVICAL SPINE: No pain with cervical ROM, No Cervical spine tenderness and No Paracervical muscle tenderness Chest: COMMONS NORMALS: normal inspection of the chest Resp: COMMON NORMALS: normal respiratory effort and clear to auscultation bilaterally AUSCULTATION: clear to auscultation bilaterally Cardio: COMMON NORMALS: no JVD and regular rhythm RATE: tachycardic RHYTHM: regular rhythm GI: COMMON NORMALS: Normal to inspection, nondistended, normoactive bowel sounds present Back/Pelvis: LUMBAR SPINE/LOWER BACK: Yes normal to inspection, Yes lumbar ROM normal, Yes lumbar spinal tenderness, Yes paraspinal muscle tenderness and No paraspinal muscle spasm Extremity: COMMON NORMALS: normal to inspection and full ROM Neuro: COMMON NORMALS: patient oriented x3 Course Vital Signs: Vital signs: Vital Signs Temperature 97.9 F 11/01/21 13:02 Pulse Rate 112 H 11/01/21 13:02 Respiratory Rate 18 11/01/21 13:02 Blood Pressure 155/109 11/01/21 13:02 Pulse Oximetry 98 11/01/21 13:02 Discharge Plan Discharge Prescriptions: No Action multivitamin with minerals [DAILY VITAMIN FORMULA-MINERALS] Tablet 1 tab PO DAILY RF: 0 mecobalamin (vitamin B12) 1,000 mcg tablet,chewable 1,000 mcg PO DAILY RF: 0 cetirizine [24Hour Allergy] 10 mg tablet 10 mg PO DAILY PRNRF: 0 diphenhydramine HCl [Benadryl] 25 mg capsule 25 mg PO TID PRNRF: 0 famotidine 20 mg tablet 20 mg PO DAILY PRN (Reason: reflux) RF: 0 naproxen sodium [Aleve] 220 mg Capsule 220 mg PO BID PRN (Reason: Pain) RF: 0 Coding Level 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
[2021-11-01 13:27] VITALS: BP 154/100; PULSE 97; RESP 18; O2SAT 98
== END 2021-11-01 13:57 | disposition home or self-care (01) ==
PROVIDERS: Emergency Provider Nurse Practitioner Family
DX: M54.50 Low back pain, unspecified (principal); I10 Essential (primary) hypertension; F17.210 Nicotine dependence, cigarettes, uncomplicated
CPT/HCPCS: 72100; 99282

== ENCOUNTER 2022-12-20 08:32 | Emergency (ER) | payer SELFPAY ==
[2022-12-20 08:47] VITALS: BP 188/105; PULSE 75; TEMP 36.6; O2SAT 98; BMI 23.7
--- NOTE | 2022-12-20 09:52 | ED_ITS ---
HPI - Extremity Problem General: Chief complaint: Back Pain/Injury Stated complaint: bilateral arm pain Time Seen by Provider: 12/20/22 09:31 Source: patient Mode of arrival: ambulatory Limitations: no limitations History of Present Illness: Patient is a 37-year-old male presents to ED today with a complaint of chronic bilateral upper extremity pains. Patient states he has had these discomforts for several several months now but has delayed any form of medical evaluation due to lack of insurance. Patient states he gets burning sensations to his bilateral hands that seem to radiate proximally. He states pain seems to be worse when he sleeps and with overuse of the extremities. 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 Patient has not noticed any swelling or color/temperature changes to the extremity. He does not complain of any neck pain. He states sometimes he has difficulty gripping things with his left hand. MD Complaint: extremity pain Onset (ago): month(s) Pain Consistency: intermittent Location: left, right and upper extremity Quality: burning Radiation: proximal Relieving factors: rest Exacerbating factors: other (sleep, overusage of hands/arms) Associated symptoms: Deny chest pain, fever(s) or rash Review of Systems Const: Denies: fever(s), chills, body aches, fatigue or malaise Card: Denies: chest pain Resp: Denies: dyspnea Musc: Reports: extremity pain; Denies: neck pain, back pain, extremity swelling, joint pain, joint swelling, joint redness, joint warmth or limited range of motion Skin/Breast: Denies: rash Neuro: Reports: numbness in extremities and sensory changes; Denies: headache(s) PFSH ED PFSH: Medical History Anxiety and depression Bipolar 1 disorder Chronic migraine Fibromyalgia GERD (gastroesophageal reflux disease) History of torsion of testis HTN (hypertension) Left flank pain Manic depression Psychiatric care Urolithiasis Surgical History History of lithotripsy Family History Father CAD (coronary artery disease) Grandfather CAD (coronary artery disease) Social History Smoking and tobacco status: current every day smoker Alcohol intake: current Alcohol intake frequency: holidays/special occasions only Adopted: No Caregiver/support person: No Lives independently: No Marital status: Current occupational status: unemployed Physical Exam Const: COMMON NORMALS: no acute distress, no limitations, alert and well nourished GENERAL APPEARANCE: cooperative ORIENTATION/CONSCIOUSNESS: Yes awake, Yes oriented to person, Yes oriented to place and Yes oriented to time HENMT: COMMON NORMALS: normocephalic and atraumatic HEAD & SCALP: normal to inspection, normocephalic and atraumatic Neck/C-Spine: COMMON NORMALS: full ROM GENERAL: Yes normal visual inspection CERVICAL SPINE: No pain with cervical ROM, No Cervical spine tenderness, No step off deformity, No Paracervical muscle tenderness and No Trapezius muscle tenderness OTHER: negative Spurling's Back/Pelvis: COMMON NORMALS: thoracic and lumbar spine normal to inspection, no thoracic nor lumbar tenderness and thoraco-lumbar ROM normal Extremity: COMMON NORMALS: normal to inspection, full ROM, capillary refill normal, no joint enlargement, no clubbing, cyanosis or edema and no pedal edema GENERAL: Yes normal exam except as noted OTHER: weakened plumbing installer strength on left; positive Tinel's/Phalen's testing; radial pulses normal bilaterally-do not decrease when hands are raised over head; overhead testing also does not seem to worsen paresthesias; no color/temp changes noted; paresthesias seem to be located to median nerve distribution Neuro: COMMON NORMALS: moves all extremities, no focal motor deficits and no sensory deficits noted SENSORIUM/ORIENTATION: Yes alert, Yes oriented to person, Yes oriented to place and Yes oriented to time Skin: COMMON NORMALS: no rashes or lesions noted GENERAL SKIN EXAM: no rashes or lesions noted Course Vital Signs: Vital signs: Vital Signs Temperature 97.8 F 12/20/22 08:47 Pulse Rate 88 12/20/22 10:14 Blood Pressure 125/87 12/20/22 10:14 Pulse Oximetry 97 12/20/22 10:14 Oxygen Delivery Me thod 12/20/22 08:47 MDM - Extremity (Nontraumatic) Medical Decision Making DDx cervical radiculopathy, thoracic outlet syndrome, nerve entrapment, CTS. CTS most likely given his classic symptoms of hand paresthesia/weakness, positive Tinel's/Phalen's, positive provoking factors such as sleep/repetitive usage, and median distribution. Will brace left wrist as this seems to be his most bothersome side. 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 Discharge Plan Discharge Patient Disposition: Home Clinical Impression: Chronic hypertension Carpal tunnel syndrome Qualifiers: Laterality: bilateral Qualified Code(s): G56.03 - Carpal tunnel syndrome, bilateral upper limbs Condition: Stable Prescriptions: New prednisone 10 mg tablet 60 mg PO DAILY 5 Days Qty: 30 0RF diclofenac sodium 50 mg tablet,delayed release (DR/EC) 50 mg PO Q12H PRN (Reason: pain) Qty: 20 0RF lisinopril 10 mg tablet 10 mg PO DAILY Qty: 30 0RF Discontinued celecoxib [Celebrex] 100 mg capsule 100 mg PO BID Qty: 20 0RF naproxen sodium [Aleve] 220 mg Capsule 220 mg PO BID PRN (Reason: Pain) No Action multivitamin with minerals [DAILY VITAMIN FORMULA-MINERALS] Tablet 1 tab PO DAILY mecobalamin (vitamin B12) 1,000 mcg tablet,chewable 1,000 mcg PO DAILY cetirizine [24Hour Allergy] 10 mg tablet 10 mg PO DAILY PRN diphenhydramine HCl [Benadryl] 25 mg capsule 25 mg PO TID PRN famotidine 20 mg tablet 20 mg PO DAILY PRN (Reason: reflux) Discharge Orders: Discharge ED (Routine); Ordered 12/20/22 Ordered By: Annel Chaudhary Patient Instructions: Carpal Tunnel Syndrome (DC) Activity Restrictions/Additional Instructions: As we discussed start bracing your wrists at night to see if this will help alleviate some discomfort. I will place you on anti-inflammatories and steroids. Case management will work on getting you set up with a primary care a ppointment for further evaluation and treatment. 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
[2022-12-20] MEDS: dexamethasone 10 mg/mL INJ 8 MG IM (10:01)
[2022-12-20] MEDS: HYDROcodone-acetaminophen 5-325 mg Tablet 1 TAB PO (10:01)
[2022-12-20 10:14] VITALS: BP 125/87; PULSE 88; O2SAT 97
--- NOTE | 2022-12-21 11:17 | DCPLANNER ---
Addendum entered by Sofia Fox 12/25/22 13:21: hris manager called patient due to no primary care physician - no answer at this time. Original Note: hris manager had message to speak with patient about getting established with a primary care physician. hris manager called phone number [phone], left a message for patient to return manager case management phone call.
== END 2022-12-20 10:16 | disposition home or self-care (01) ==
PROVIDERS: Emergency Provider Physician Assistant
DX: G56.03 Carpal tunnel syndrome, bilateral upper limbs (principal); I10 Essential (primary) hypertension; F17.210 Nicotine dependence, cigarettes, uncomplicated
CPT/HCPCS: 96372; 99284; J1100